=== PATIENT | female | born 1950 | race Caucasian/White ===

== ENCOUNTER 2025-10-07 11:40 | Emergency (ER) | payer MEDICARE ==
[~2025-10-07 11:40] MED LIST: Iopamidol 300 61% 100 ML VIAL FS ONE
[2025-10-07] MEDS ORDERED: PHENYLEPHRINE-NS 100 MCG/ML 10 ML SYRINGE ONE (12:28)
[2025-10-07] MEDS ORDERED: Nitroglycerin 50 MG/250 ML BOT 250 ML ONE (12:28)
[2025-10-07] MEDS ORDERED: Adenosine 6 mg (2 mL) VIAL ONE (12:28)
[2025-10-07] MEDS ORDERED: Heparin 10,000 UNITS/ 10 ML VIAL ONE ×2 (12:28→12:41)
[2025-10-07] MEDS ORDERED: Lidocaine 1% (PF) 30 ML VIAL ONE (12:28)
[2025-10-07 12:29] LABS: #Basophils 0.04 10x3/uL (0.0-0.2); #Eosinophils 0.08 10x3/uL (0.0-0.5); #Monocytes 0.77 10x3/uL (0.0-1.1); #Neutrophils 6.88 10x3/uL (1.5-8.4); %Basophils 0.4 % (0.0-2.0); %Eosinophils 0.8 % (0.0-6.0); %Lymphocytes 19.5 % (18.0-47.0); %Monocytes 7.9 % (0.0-10.0); %Neutrophils 71.1 % (40.0-75.0); Hematocrit 39.0 % (34.9-44.5); Hemoglobin 14.0 g/dL (12.0-15.5); Mean Corpuscular Hemoglobin 30.9 pg (27.0-33.0); Mean Corpuscular Volume 86.1 fL (81.6-98.3); Platelet Count 286 10x3/uL (150-450); Red Blood Cell (RBC) Count 4.53 10x6/uL (3.90-5.03); White Blood Cell (WBC) Count 9.69 10x3/uL (3.5-10.5)
[2025-10-07 12:47] LABS: ALT (SGPT) 36 U/L (Less than 34); AST (SGOT) 29 U/L (11-34); Albumin 4.4 g/dL (3.1-4.5); Alkaline Phosphatase 109 U/L (40-110); Anion Gap 11 mmol/L (10-20); BUN (Urea Nitrogen) 14 mg/dL (9.8-20.1); Bilirubin, Total 1.5 mg/dL (0.3-1.2); Calc. Creatinine Clearance 0 mL/min (70-130); Calcium 9.6 mg/dL (7.8-10.44); Carbon Dioxide 25 mmol/L (23-31); Chloride 94 mmol/L (98-107); Globulin 2.4 g/dL (2.4-3.5); Glucose 114 mg/dL (83-110); Potassium 3.7 mmol/L (3.5-5.1); Sodium 126 mmol/L (136-145)
[2025-10-07 12:54] LABS: Troponin I Less than 0.010 ng/mL (< 0.028)
[2025-10-07] MEDS ORDERED: Nitroglycerin 0.4 MG TAB (25 Tab Bottle) SL PRN (13:49)
[2025-10-07] MEDS ORDERED: Acetaminophen/Codeine 30-300mg Tablet PO PRN ×2 (13:49)
[2025-10-08] MEDS ORDERED: Lisinopril 5 MG TAB PO SCH (09:00)
== END 2025-10-07 13:01 | disposition short-term general hospital (02) ==
LOC: CSHERS 11:40
DX: R94.31 Abnormal electrocardiogram [ECG] [EKG] (principal); I10 Essential (primary) hypertension
CPT/HCPCS: 71045; 80053; 83880; 84484; 85025; 85379; 93005; 93458; 94760; 99285; C1769; C1894; J1644; J2003; J2250; J3010; Q9967; 99152; J0153; J0461